=== PATIENT | male | born 1950 | race Hispanic/Latino ===

== ENCOUNTER → 2024-03-21 | Outpatient (RCR) | payer MEDICARE ==
[~2024-03-21] MED LIST: AMLODIPINE BES2.5 MG; ASPIRIN81 MG PO; BENAZEPRIL HCL10 MG PO; Z.5.AMLODIPINE-BEN1 PO
== END ==
LOC: PT 03-01 07:41
PROVIDERS: ATTEND Physician Assistant
DX: Z47.1 Aftercare following joint replacement surgery (principal); Z96.651 Presence of right artificial knee joint; M25.561 Pain in right knee; M62.81 Muscle weakness (generalized); R26.9 Unspecified abnormalities of gait and mobility

== ENCOUNTER 2024-04-04 10:56 | Outpatient (RCR) | payer MEDICARE | END 2024-04-21 | LOC: PT 10:56 | PROVIDERS: ATTEND Physician Assistant | DX: Z47.1 Aftercare following joint replacement surgery (principal); Z96.651 Presence of right artificial knee joint; M25.561 Pain in right knee; M62.81 Muscle weakness (generalized); R26.9 Unspecified abnormalities of gait and mobility ==

== ENCOUNTER → 2025-01-17 | Outpatient (REF) | payer MEDICARE ==
[2025-01-16 10:17] LABS: BASOPHILS % 0.3 % (0.0-1.0); EOSINOPHILS % 0.1 % (0.0-6.0); LYMPHOCYTES % 4.3 % (18.0-39.1); MONOCYTES % 9.1 % (4.4-11.3); NEUTROPHILS % 85.6 % (38.7-80.0); RED CELL DISTRIBUTION WIDTH 12.7 % (11.7-14.4)
[~2025-01-17] MED LIST changes: +ASPERCREME85 GM TOP; +CENTRUM ADULTS1 EACH PO; +ROPIVACAINE/EPI/CLONIDINE/KET 50 ML SYRINGE INJ ONE
== END ==
LOC: RAD 09:00 → EDSTATUS 10:00
PROVIDERS: ATTEND Specialist
DX: Z01.818 Encounter for other preprocedural examination (principal); M17.12 Unilateral primary osteoarthritis, left knee
CPT/HCPCS: 36415; 71046; 85025; 86850; 86900

== ENCOUNTER 2025-02-12 11:40 | Emergency (ER) | payer MEDICARE ==
[~2025-02-12] VITALS: Ht 182.9 cm; Wt 95.3 kg
[~2025-02-12 11:40] MED LIST changes: -ROPIVACAINE/EPI/CLONIDINE/KET 50 ML SYRINGE INJ ONE
[2025-02-12 11:47] VITALS: RESP 20
[2025-02-12 12:57] VITALS: PULSE 74; TEMP 98.8; O2SAT 100
== END 2025-02-12 14:08 | disposition home or self-care (01) ==
LOC: ER 12:31
DX: Z45.2 Encounter for adjustment and management of vascular access device (principal); Z79.2 Long term (current) use of antibiotics; I10 Essential (primary) hypertension; I48.91 Unspecified atrial fibrillation; M19.09 Primary osteoarthritis, other specified site; Z87.19 Personal history of other diseases of the digestive system
CPT/HCPCS: 99282